=== PATIENT | female | born 1990 | race Caucasian/White ===

== ENCOUNTER 2018-10-14 09:14 | Emergency (ER) | payer MEDICAID ==
[2018-10-14 09:19] VITALS: BP 95/62
--- NOTE | 2018-10-14 09:40 | EDPHY ---
General Time Seen by Provider: 10/14/18 09:32 Narrative: CHIEF COMPLAINT: Cough, sore throat HISTORY OF PRESENT ILLNESS: Patient presents with complaints of cough and sore throat. Symptoms have been present for several days. She describes a mild at 1st, now moderate to severe. The cough is keeping her up at night. Worse when lying down. Minimal improvement when upright. It is somewhat productive with changing color sputum. She also has a persistent sore throat but she has been able to eat and drink without difficulty but has a decreased appetite. She has some chest pain that is only associated with her cough. She has some shortness of breath and wheezing at times. No abdominal pain or urinary complaints. Minimal headache. No neck pain or stiffness. She has ongoing joint pains and body aches, for which she reports [facility] diagnosis. She has no trauma or injury. She is currently homeless living in the [facility] at night. She quit smoking within the past week. No other associated complaints or modifying factors REVIEW OF SYSTEMS: 10 systems were reviewed and negative with the exception of the elements mentioned in the history of present illness. PCP: [facility] SPECIALISTS: None PAST MEDICAL HISTORY: Endometriosis, ovarian cyst PAST SURGICAL HISTORY: Abdominal a laparoscopies for endometriosis and cystectomy. Tonsillectomy remotely SOCIAL HISTORY: Quit smoking less than 1 week ago. Denies alcohol or drug use. Currently homeless FAMILY HISTORY: Noncontributory EXAMINATION: Vitals: Triage VS reviewed. Mildly tachycardic at triage. Normal rate during examination General Appearance: Alert, no distress. Well appearing. Conversing in full sentences. Head: normocephalic, atraumatic Eyes: Pupils equal and round, no conjunctival pallor or injection ENT, Mouth: Mucous membranes moist. Airway is widely patent. There is very poor dentition but no dental abscesses. No trismus. Mild posterior erythema with no edema or exudate. Tonsils are surgically absent. Neck: Normal inspection, supple, non-tender. No meningismus. Respiratory: Scattered rhonchi. No wheezing. No consolidation. No retractions, diminishment or distress. Normal work of breathing. Cardiovascular: Regular rate and rhythm. No murmur. Gastrointestinal: Abdomen is soft and nontender Back: non-tender, no bony abnormalities Neurological: A&O, nonfocal, normal gait Skin: Warm and dry, no rash no petechiae or purpura Extremities: Nontender, no pedal edema Psychiatric: Mood and affect normal DIFFERENTIAL DIAGNOSES: Including but not limited to viral bronchitis, bacterial bronchitis, viral pharyngitis, strep pharyngitis, dental abscess, pulpitis, viral syndrome, influenza MDM: 9:30 a.m. Acute cough and pharyngitis with no evidence of pneumonia by examination or vital signs. Her airway is widely patent. Her pulmonary exam suggest bronchitis greater than pneumonia. However, given that she is a recent smoker and currently homeless, I do feel she is at higher risk for bacterial bronchitis versus early pneumonia, thus I will treat her with antibiotics. We discussed short course of steroid, albuterol, ibuprofen and cough medicine. We discussed strict ED precautions for worsening symptoms. [facility]. I have answered all her questions. She is well-appearing with normal vital signs and discharged home stable condition. SUPERVISION: This patient was independently evaluated without direct involvement of or examination by the attending physician. CONSULTATION: None - History Smoking Status: Former smoker - Objective Vital Signs: Initial Vital Signs Temperature (C) 98.2 F 10/14/18 09:16 Heart Rate 108 H 10/14/18 09:16 Respiratory Rate 16 10/14/18 09:16 Blood Pressure 95/62 L 10/14/18 09:16 O2 Sat (%) 97 10/14/18 09:16 O2 Delivery Mode Room Air Allergies/Adverse Reactions: amoxicillin [From Augmentin] Allergy (Verified 10/14/18 09:15) clavulanic acid [From Augmentin] Allergy (Verified 10/14/18 09:15) Home Medications: Medication Instructions Recorded Albuterol [Proventil Inhaler HFA 1 - 2 puffs IH Q4H PRN #1 mdi 10/14/18 (*)] Azithromycin [Zithromax] 250 mg PO DAILY #6 tab 10/14/18 Dexamethasone [Decadron 4 MG (*)] 8 mg PO ONCE #2 tab 10/14/18 Dextromethorphan Polistirex 30 mg PO BID PRN #1 btl 10/14/18 [Delsym] Ibuprofen 600 mg PO Q8 PRN #30 tablet 10/14/18 Departure - Departure Disposition: Home, Routine, Self-Care Clinical Impression: Acute bronchitis Qualifiers: Bronchitis organism: unspecified organism Qualified Code(s): J20.9 - Acute bronchitis, unspecified Acute pharyngitis Qualifiers: Pharyngitis/tonsillitis etiology: unspecified etiology Qualified Code(s): J02.9 - Acute pharyngitis, unspecified Condition: Good Instructions: Pharyngitis (ED), Acute Bronchitis (ED) Additional Instructions: 1. Ibuprofen 600 mg every 6-8 hours for the next 7-10 days 2. Albuterol inhaler as prescribed as needed for shortness of breath or wheezing 3. Zithromax antibiotic as prescribed to completion 4. Cough medicine as prescribed as needed every 12 hr 5. Decadron steroid x1 today as prescribed 6. Follow up with [facility] early next week 7. ED precautions for worsening symptoms, persistent fever, chest pain Referrals: [facility],. [Clinic] - As per Instructions Physician,Emergency Dept, [Medical Doctor] - As per Instructions Prescriptions: Albuterol [Proventil Inhaler HFA (*)] 1 - 2 puffs IH Q4H PRN #1 mdi PRN Reason: Short Of Breath/Dyspnea Azithromycin [Zithromax] 250 mg PO DAILY #6 tab Dexamethasone [Decadron 4 MG (*)] 8 mg PO ONCE #2 tab Dextromethorphan Polistirex [Delsym] 30 mg PO BID PRN #1 btl PRN Reason: Cough, Mild Ibuprofen 600 mg PO Q8 PRN #30 tablet PRN Reason: Pain, Mild
--- NOTE | 2018-10-14 10:44 | ASMTCMCOM ---
CM Note CM Note Notes: Patient is currently homeless and staying at [facility] in [place]. She tells me that she and her boyfriend have been to [place] but are unable to stay at [facility] because her boyfiriend is a "but cannot prove it". When asked to clarify this she states, "I don't know but I guess we are suing [place] because my boyfriend is a ". Patient is aware of the location of the [facility] and said they are not having any trouble staying at the [facility] shelters. Patient is from [place] and has been transient in [place] since january of 2018. She is in contact with her parents and is concerned about her dad who just had back surgery yesterday. I encouraged her to maintain contact with her folks and think seriously about HER future and what is the best way to achieve her goals-she would like to be a RECORD [employer]. Patient states she is current at [facility] and her PCP is Kyle Rios. I have faxed patient's ED report to the clinic and asked patient to call the clinic on Tuesday to schedule an ED follow up visit. Patient plans to fill her current prescriptions at [facility] pharmacy on [address] in [place]. I stressed the importance of taking all meds as prescribed and to be sure she finishes her complete course of antibiotics Date Signed: 10/14/2018 10:43 AM Electronically Signed By:Binta Guy RN
== END 2018-10-14 10:15 | disposition home or self-care (01) ==
DX: J02.9 Acute pharyngitis, unspecified (principal); Z87.891 Personal history of nicotine dependence